=== PATIENT | male | born 1980 | race Hispanic/Latino ===

== ENCOUNTER 2017-05-04 02:19 | Emergency (ER) | payer SELFPAY ==
[2017-05-04 02:32] VITALS: BP 142/70; PULSE 98; RESP 17; TEMP 97.8; O2SAT 97
--- NOTE | 2017-05-04 05:09 | ED PDOC ---
HPI: Psych/Substance Abuse Time Seen by Provider: 05/04/17 03:00 Chief Complaint (Nursing): Psychiatric Evaluation Chief Complaint (Provider): Suicidal Ideation History Per: Patient History/Exam Limitations: no limitations Current Symptoms Are (Timing): Still Present Modifying Factor(s): Alcohol Additional Complaint(s): 37 year old male presents to ED with complaints of suicidal ideation and has a history of schizophrenia and depression. Patient states that he wanted to jump off of his roof. Admits to drinking alcohol tonight. PCP: None Past Medical History Reviewed: Historical Data, Nursing Documentation, Vital Signs Vital Signs: Last Vital Signs Temp 97.8 F 05/04/17 02:28 Pulse 98 H 05/04/17 02:28 Resp 17 05/04/17 02:28 BP 142/70 05/04/17 02:28 Pulse Ox 97 05/04/17 02:28 - Medical History PMH: Depression, Schizophrenia - Family History Family History: States: Unknown Family Hx - Social History Alcohol: > 2 Drinks/Day - Allergies Allergies/Adverse Reactions: Allergies Allergy/AdvReac Type Severity Reaction Status Date / Time No Known Allergies Allergy Verified 05/04/17 02:32 Review of Systems ROS Statement: Except As Marked, All Systems Reviewed And Found Negative Psych: Positive for: Suicidal ideation Physical Exam - Reviewed Nursing Documentation Reviewed: Yes Vital Signs Reviewed: Yes - Physical Exam Appears: Positive for: Non-toxic, No Acute Distress Skin: Positive for: Normal Color, Warm, Dry Eye Exam: Positive for: Normal appearance ENT: Positive for: Normal ENT Inspection Neck: Positive for: Normal, Painless ROM, Supple Cardiovascular/Chest: Positive for: Regular Rate, Rhythm. Negative for: Bradycardia Respiratory: Positive for: Normal Breath Sounds. Negative for: Respiratory Distress Gastrointestinal/Abdominal: Positive for: Normal Exam, Soft. Negative for: Tenderness Back: Positive for: Normal Inspection Extremity: Positive for: Normal ROM Neurologic/Psych: Positive for: Alert, Oriented. Negative for: Motor/Sensory Deficits - ECG O2 Sat by Pulse Oximetry: 97 (RA) Pulse Ox Interpretation: Normal Medical Decision Making Medical Decision Makin Upon further evaluation, patient states he just wants to sleep in the ED and that he does not actually present with suicidal ideation. Initial impression: bed seeking behavior Initial plan: * Acetaminophen * EtOH serum * Labs * UDrug screen * Salicylate * Crisis eval * UA 0430 Patient evaluated by crisis. Dx: EtOH adjustment disorder as per Dr. Banuelos. Patient is stable for discharge. Scribe Attestation: Documented by Hayley Gautam acting as a scribe for Papo Hayward MD. Scribe Attestation: All medical record entries made by the Scribe were at my direction and personally dictated by me. I have reviewed the chart and agree that the record accurately reflects my personal performance of the history, physical exam, medical decision making, and the department course for this patient. I have also personally directed, reviewed, and agree with the discharge instructions and disposition. Disposition - Clinical Impression Clinical Impression: Alcohol abuse, Adjustment disorder - Disposition Referrals: Alcoholics Anonymous [Outside] Disposition: Routine/Home Disposition Time: 04:30 Condition: STABLE Instructions: Abuse of Alcohol (ED) Forms: [facility] ([place])
== END 2017-05-04 05:45 | disposition home or self-care (01) ==
LOC: H.ER 02:19
DX: Z02.89 Encounter for other administrative examinations (principal)